=== PATIENT | female | born 1955 | race Hispanic/Latino ===

== ENCOUNTER 2023-02-21 10:07 | Outpatient (CLI) | payer OTHER | END 2023-02-21 10:08 | disposition home or self-care (01) | LOC: RAD 10:07 | PROVIDERS: ATTEND Family Medicine | DX: M54.50 Low back pain, unspecified (principal); G89.29 Other chronic pain | CPT/HCPCS: 72100 ==

== ENCOUNTER 2023-05-13 08:22 | Outpatient (CLI) | payer OTHER | END 2023-05-13 08:23 | disposition home or self-care (01) | LOC: NM 08:22 | PROVIDERS: ATTEND Student in an Organized Health Care Education/Training Program | DX: M89.9 Disorder of bone, unspecified (principal) | CPT/HCPCS: 78306; A9503 ==

== ENCOUNTER 2023-06-23 10:32 | Outpatient (CLI) | payer OTHER | END 2023-06-23 10:33 | disposition home or self-care (01) | LOC: RAD 10:32 | PROVIDERS: ATTEND Neurological Surgery | DX: S32.019A Unspecified fracture of first lumbar vertebra, initial encounter for closed fracture (principal) | CPT/HCPCS: 72100 ==

== ENCOUNTER 2025-07-22 15:04 | Outpatient (CLI) | payer OTHER | END 2025-07-22 15:05 | disposition home or self-care (01) | LOC: SCSBT 15:04 | PROVIDERS: ATTEND Student in an Organized Health Care Education/Training Program | DX: Z78.0 Asymptomatic menopausal state (principal); M81.0 Age-related osteoporosis without current pathological fracture | CPT/HCPCS: 77080 ==